=== PATIENT | male | born 1975 | race Caucasian/White ===

== ENCOUNTER 2024-12-13 10:54 | Emergency (ER) | payer OTHER, SELFPAY ==
[2024-12-13 10:58] VITALS: BP 117/83
--- NOTE | 2024-12-13 11:20 | ED.GENMED ---
History of Present Illness
<Alexandru Hand PA-C - Last Filed: 12/13/24 15:06>
General
Chief Complaint: Fever
Time Seen by Provider: 12/13/24 11:10
History of Present Illness
History of Present Illness:
49-year-old male presents to the emergency department for evaluation of right inguinal pain associated with fever. Denies any injuries or trauma to the area. Does also have suprapubic discomfort and dysuria but feels as though this may be a
chronic issue related to chronic prostatitis. Saw his PCP today who referred him into the ED for further evaluation. Denies any URI symptoms
Review of Systems
<JT Calderon Last Filed: 12/13/24 15:06>
Review of Systems
Allergies reviewed?: Yes
All Other Systems: ROS reviewed and negative except as documented in HPI and ROS
Phy Exam
<Alexandru Hand PA-C - Last Filed: 12/13/24 15:06>
Physical Exam
Physical Exam:
GEN: Well appearing, NAD, WDWN
HEENT: Oral mucosa moist, no scleral icterus
Cardiac: Regular rate
Lung: No respiratory distress, no tachypnea
Abdomen: Soft, grossly nontender. Thready right axillary adenopathy tender to palpation, no inguinal hernia
MSK: No gross deformity or injuries
Skin: Good color, no pallor or jaundice, no rashes
Neuro: AO x3, moves all extremities freely
Psych: Calm, cooperative
Sepsis
<JT Calderon Last Filed: 12/13/24 15:06>
Sepsis Screening
Sepsis Assessment: Sepsis Ruled Out
Sepsis Screen
Sepsis Screen: Sepsis Ruled Out
Date: 12/13/24
Time: 15:06
Course
<Alexandru Hand PA-C - Last Filed: 12/13/24 15:06>
Orders/Labs/Results
Orders:
Orders
12/13/24 11:19
Bladder Scan- Treatment ONCE
Acetaminophen [Tylenol] 1,000 mg PO NOW STA
12/13/24 11:32
Complete Blood Count/With Diff Urgent
Comprehensive Metabolic Panel Urgent
Lactic Acid Q4H
Comment: CANCEL 2nd LACTIC ACID IF 1st LACTIC ACID IS LESS THAN 2
Urinalysis Reflex To Culture Urgent
Date Specimen was Collected: 12/13/24
Time Specimen was Collected: 11:29
Urine Microscopic Reflex Cult Urgent
Blood Culture Q30M
JADE Source: Blood/Venous
Specimen Description:
Blood Culture Q30M
JADE Source: Blood/Venous
Specimen Description:
12/13/24 12:31
CT Abd/Pel (IV only)-DH only Urgent
Comment:
Reason For Exam: R inguinal pain/fever/hematuria
12/13/24 14:22
CR Chest - 2 Views Urgent
Comment:
Reason For Exam: fever
12/13/24 14:26
Ehrlichia chaffeensis Ab Panel [S] Urgent
Lyme Progressive Urgent
Monotest Urgent
12/13/24 15:30
Lactic Acid Q4H
Comment: CANCEL 2nd LACTIC ACID IF 1st LACTIC ACID IS LESS THAN 2
Abnormal Lab Results
12/13/24
11:32
MCHC 32.9 L g/dL
(33.0-37.0)
Absolute Lymphs (auto) 1.1 L 10^3/uL
(1.2-3.4)
Absolute Monos (auto) 0.9 H 10^3/uL
(0.1-0.6)
Lymphocytes % 19.1 L %
(20.5-51.1)
Monocytes % 15.1 H %
(1.7-9.3)
Carbon Dioxide 31 H mmol/L
(22-30)
Glucose 131 H mg/dl
(70-99)
AST 61 H U/L
(17-59)
ALT 89 H U/L
(0-50)
Ur Occult Blood Reflex 3+ A
(Negative)
Urine RBC 26-30 A /HPF
(0-2)
Urine Albumin (Reflex) 2+ A
(Neg - Trace)
12/13/24 11:32
12/13/24 11:32
Vital Signs
Initial and Last Documented VS:
Initial Vital Signs
Temp Pulse Resp BP Pulse Ox
101.2 F H 100 18 117/83 96
12/13/24 10:58 12/13/24 10:58 12/13/24 10:58 12/13/24 10:58 12/13/24 10:58
Last Documented Vital Signs
Temp Pulse Resp BP Pulse Ox
101.2 F H 93 14 117/83 96
12/13/24 10:58 12/13/24 11:16 12/13/24 11:16 12/13/24 10:58 12/13/24 10:58
<Justin Newsome MD - Last Filed: 12/13/24 14:41>
Orders/Labs/Results
Orders:
Orders
12/13/24 11:19
Bladder Scan- Treatment ONCE
Acetaminophen [Tylenol] 1,000 mg PO NOW STA
12/13/24 11:32
Complete Blood Count/With Diff Urgent
Comprehensive Metabolic Panel Urgent
Lactic Acid Q4H
Comment: CANCEL 2nd LACTIC ACID IF 1st LACTIC ACID IS LESS THAN 2
Urinalysis Reflex To Culture Urgent
Date Specimen was Collected: 12/13/24
Time Specimen was Collected: 11:29
Urine Microscopic Reflex Cult Urgent
Blood Culture Q30M
JADE Source: Blood/Venous
Specimen Description:
Blood Culture Q30M
JADE Source: Blood/Venous
Specimen Description:
12/13/24 12:31
CT Abd/Pel (IV only)-DH only Urgent
Comment:
Reason For Exam: R inguinal pain/fever/hematuria
12/13/24 14:22
CR Chest - 2 Views Urgent
Comment:
Reason For Exam: fever
12/13/24 14:26
Ehrlichia chaffeensis Ab Panel [S] Urgent
Lyme Progressive Urgent
Monotest Urgent
12/13/24 15:30
Lactic Acid Q4H
Comment: CANCEL 2nd LACTIC ACID IF 1st LACTIC ACID IS LESS THAN 2
Abnormal Lab Results
12/13/24
11:32
MCHC 32.9 L g/dL
(33.0-37.0)
Absolute Lymphs (auto) 1.1 L 10^3/uL
(1.2-3.4)
Absolute Monos (auto) 0.9 H 10^3/uL
(0.1-0.6)
Lymphocytes % 19.1 L %
(20.5-51.1)
Monocytes % 15.1 H %
(1.7-9.3)
Carbon Dioxide 31 H mmol/L
(22-30)
Glucose 131 H mg/dl
(70-99)
AST 61 H U/L
(17-59)
ALT 89 H U/L
(0-50)
Ur Occult Blood Reflex 3+ A
(Negative)
Urine RBC 26-30 A /HPF
(0-2)
Urine Albumin (Reflex) 2+ A
(Neg - Trace)
12/13/24 11:32
12/13/24 11:32
Vital Signs
Initial and Last Documented VS:
Initial Vital Signs
Temp Pulse Resp BP Pulse Ox
101.2 F H 100 18 117/83 96
12/13/24 10:58 12/13/24 10:58 12/13/24 10:58 12/13/24 10:58 12/13/24 10:58
Last Documented Vital Signs
Temp Pulse Resp BP Pulse Ox
101.2 F H 93 14 117/83 96
12/13/24 10:58 12/13/24 11:16 12/13/24 11:16 12/13/24 10:58 12/13/24 10:58
<Alexandru Hand PA-C - Last Filed: 12/13/24 15:06>
MDM/Problems Addressed
MDM/Problems Addressed:
Because the patient's fever and inguinal adenopathy remains unclear. No clear acute infectious source on chest x-ray or abdomen CT. Urinalysis shows hematuria but no bacteriuria. Viral etiology versus tickborne etiology remains possible.
Appropriate testing is sent. Will recommend patient follow-up with his primary care physician to discuss next steps
<Alexandru Hand PA-C - Last Filed: 12/13/24 15:06>
*Critical Care Note
Total Time (30-74mins, 75-104mins- exclusive of procedures): Not Applicable
ED Attending Note
<Alexandru Hand PA-C - Last Filed: 12/13/24 15:06>
-
Portions of this chart may have been created with voice recognition software.� Occasional wrong word or��sound alike� substitutions may have occurred due to the inherent limitations of voice recognition software.
<Justin Newsome MD - Last Filed: 12/13/24 14:41>
ED Attending Note
Patient seen and examined by attending physician: Yes
I performed the substantive portion of visit, reviewed & personally made and approve the management plan that is documented in note by myself or GLENDA.: Yes
ED Attending Note:
Healthy 49-year-old male started with right groin pain 3 to 4 days ago. Some chills overnight and fever noted today. No respiratory symptoms no weight change no abdominal pain no urinary symptoms no other skin infection or skin issues. Some
tenderness to the groin. History of prostatitis although no issues recently.
On exam patient is nontoxic in no distress. He is no unusual rash. No petechia no purpura. No cellulitis or infection of the lower extremity. Tenderness and swelling to the right inguinal area. Lesser extent to the left. Abdomen is nontender.
No liver or spleen palpable. Lungs are clear and equal. Heart regular rate and rhythm no murmur. No submandibular or axillary adenopathy.
Impression is adenitis right inguinal area. History of prostatitis although no current symptoms. Labs show a mild monocytosis. CT scan is relatively unremarkable. There are multiple small cystic lesions in his liver. I discussed this with
radiology who did not feel this was an abscess issue. Will check tick borne illness, check Monospot chest x-ray blood cultures. Medically stable for discharge and close follow-up.
Discharge Plan
Departure
Patient Disposition: Home (Routine Discharge)
Date of Disposition: 12/13/24
Time of Disposition: 15:04
Patient with high blood pressure during this ER visit?: No
Discharge Problem:
Fever, Inguinal adenopathy
Instructions: Fever, Adult (DC)
Referrals:
Itzel Mohr DO [Family Provider, Family Practice]
Activity Restrictions/Additional Instructions:
Your tick borne testing and mono test will result between ton and later this week
We will follow up with results and contact you as needed
I will discuss with your primary doctor and advise you to follow up in the office to discuss any necessary follow up tests
Interventions
Interventions:
*Risk Screen - Suicide Last Done: 12/13/24 10:58
*General Assessment Last Done: 12/13/24 10:58
*Neglect/Abuse Screening Last Done: 12/13/24 10:58
ED- Neurological Assessment Last Done: 12/13/24 11:17
ED-Skin Assessment Last Done: 12/13/24 11:17
Discharge Date and Time
Print Language: PORTUGUESE
[2024-12-13 11:24] VITALS: BMI 24.2
[2024-12-13] MEDS: TYLENOL 1000 MG PO (11:33)
[2024-12-13 11:50] LABS: % Basophils 0.5 % (0-2); % Eosinophils 0.2 % (0-6); % Immature Granulocytes 0.2 % (0-0.5); % Lymphocytes 19.1 % (20.5-51.1); % Monocytes 15.1 % (1.7-9.3); % Neutrophils 64.9 % (42.2-75.2); Absolute Lymphocytes 1.1 10^3/uL (1.2-3.4); Absolute Monocytes 0.9 10^3/uL (0.1-0.6); Absolute Neutrophils 3.8 10^3/uL (1.4-6.5); Hematocrit 46.8 % (39.0-52.0); Hemoglobin 15.4 g/dL (13.0-18.0); Mean Corp Hgb Conc. 32.9 g/dL (33.0-37.0); Mean Corpuscular Hgb 28.3 pg (27.0-31.0); Mean Corpuscular Volume 85.9 fL (80.0-94.0); Mean Platelet Volume 9.5 fL (7.4-10.4); Nucleated Red Blood Cells % 0 % (-); Platelet Count 209 10^3/uL (130-400); Red Blood Cell Count 5.45 10^6/uL (4.70-6.10); Red Cell Dist. Width 12.2 % (11.5-14.5); White Blood Cell Count 5.8 10^3/uL (4.8-10.8)
[2024-12-13 11:51] LABS: Urine Albumin 2+ (Neg - Trace); Urine Bilirubin Negative (Negative); Urine Character Clear (Clear); Urine Color Yellow; Urine Glucose Negative (Negative); Urine Ketone Negative (Negative); Urine Leukocyte Negative (Negative); Urine Nitrite Negative (Negative); Urine Occult Blood 3+ (Negative); Urine Urobilinogen Negative (Neg - 1+)
[2024-12-13 12:06] LABS: ALT (SGPT) 89 U/L (0-50); AST (SGOT) 61 U/L (17-59); Albumin 4.8 g/dl (3.5-5.0); Alkaline Phosphatase 89 U/L (38-126); Blood Urea Nitrogen 16 mg/dl (9-20); Calcium 9.7 mg/dl (8.4-10.2); Carbon Dioxide 31 mmol/L (22-30); Chloride 103 mmol/L (98-107); Estimated Creatinine Clearance 86 ml/min; Glucose 131 mg/dl (70-99); Potassium 4.4 mmol/L (3.5-5.1); Sodium 140 mmol/L (135-145); Total Bilirubin 0.6 mg/dl (0.2-1.3); eGFR > 60.00
[2024-12-13 12:08] LABS: Lactic Acid 1.2 mmol/L (0.7-2.0)
[2024-12-13 12:23] LABS: Urine Mucus Moderate
[2024-12-13 12:26] LABS: Urine Squamous Cell 0-2 /LPF (Few)
[2024-12-13 12:27] LABS: Urine Red Blood Cell 26-30 /HPF (0-2); Urine White Cell 0-2 /HPF (0-5)
[2024-12-13 13:00] VITALS: BP 114/67
[2024-12-13 15:17] LABS: Monotest Negative (Negative)
== END 2024-12-13 15:22 | disposition home or self-care (01) ==
LOC: EMR 10:54
PROVIDERS: Physician Assistant; EMERGENCY PHYSICIAN Emergency Medicine; FAMILY PHYSICIAN Family Medicine
DX: R59.0 Localized enlarged lymph nodes (principal); R50.9 Fever, unspecified
CPT/HCPCS: 99285; 71046; 74177; 80053; 81003; 81015; 83605; 85025; 86308; 86618; 86666; 87040; Q9967